=== PATIENT | male | born 1985 | race Caucasian/White ===

== ENCOUNTER 2020-02-15 12:27 | Emergency (ER) | payer OTHER ==
[~2020-02-15] VITALS: Ht 180.3 cm; Wt 111.3 kg
[2020-02-15 13:23] LABS: BASO # 0.1 10^3/uL (0.0-0.2); BASO % 0.9 % (0.0-1.0); EOS # 0.3 10^3/uL (0.0-0.5); EOS % 4.5 % (0.0-3.0); HEMATOCRIT 46.3 % (42.0-52.0); HEMOGLOBIN 15.5 g/dl (13.5-17.5); LYMPH # 1.9 10^3/uL (1.5-5.0); LYMPH % 32.9 % (24.0-44.0); MEAN CORPUSCULAR HGB CONC 33.5 g/dl (32.0-36.5); MEAN CORPUSCULAR VOLUME 89.6 fl (80.0-96.0); MONO # 0.5 10^3/uL (0.0-0.8); NEUTROPHILS # 3.1 10^3/uL (1.5-8.5); PLATELET COUNT, AUTOMATED 290 10^3/uL (150-450); RED BLOOD COUNT 5.17 10^6/uL (4.30-6.10); WHITE BLOOD COUNT 5.8 10^3/uL (4.0-10.0)
[2020-02-15 13:53] LABS: ERYTHROCYTE SEDIMENTATION RATE 9 mm/hr (0-15)
--- NOTE | 2020-02-15 14:01 | REPVR ---
PROCEDURE INFORMATION: Exam: XR Chest, 1 View Exam date and time: 02/15/2020 1:20 PM Age: 35 years old Clinical indication: Chest pain; Type not specified; Additional info: Cp TECHNIQUE: Imaging protocol: XR of the chest Views: 1 view. COMPARISON: No relevant prior studies available. FINDINGS: Lungs: Unremarkable. No consolidation. Pleural space: Unremarkable. No pleural effusion. No pneumothorax. Heart/Mediastinum: Unremarkable. No cardiomegaly. Bones/joints: Unremarkable. IMPRESSION: No acute findings. Electronically signed by: Gabrielle Luis On 02/15/2020 14:00:52 PM
[2020-02-15 14:30] VITALS: BP 113/66
--- NOTE | 2020-02-16 07:21 | ECGEPIP ---
[facility] - ED Test Date: 2020-02-15 Pat Name: SHERI TOLBERT Department: Room: - Gender: Male Regional Guide: ham : 1985 Requested By: Nani Miller Order Number: [id number] Reading MD: Dalton Hutchinson Measurements Intervals [place] Rate: 68 P: 67 DC: 143 QRS: 35 QRSD: 88 T: 20 QT: 353 QTc: 376 Interpretive Statements SINUS RHYTHM NSTTW ABNORMALITY(S) NO PRIORS FOR COMPARISON Electronically Signed on 02-16-2020 7:21:50 EDT by Dalton Hutchinson
== END 2020-02-15 14:36 | disposition home or self-care (01) ==
LOC: M ED 12:27
DX: R07.9 Chest pain, unspecified (principal)